=== PATIENT | female | born 1975 | race Hispanic/Latino ===

== ENCOUNTER 2019-05-15 19:20 | Emergency (ER) | payer BC ==
[~2019-05-15] VITALS: Ht 160 cm; Wt 70.8 kg
[~2019-05-15 19:20] MED LIST: ADVAIR 250-501 EACH INH; BENTYL20 MG PO; NKM; PENTASA500 MG PO
[2019-05-15] MEDS ORDERED: SODIUM CHLORIDE 0.9% 1000ML 1,000 ML IV STA (19:54)
[2019-05-15] MEDS ORDERED: FAMOTIDINE 20 MG/2 ML VIAL IV ONE (20:00)
[2019-05-15] MEDS ORDERED: ONDANSETRON HCL INJ 2MG/ML 2ML 2 MG/ML VIAL IV ONE (20:00)
[2019-05-15] MEDS ORDERED: KETOROLAC TROMETHAMINE 30 MG/ML VIAL IV ONE (20:00)
[2019-05-15] MEDS ORDERED: SODIUM CHLORIDE 0.9% 1000ML 1,000 ML ONE (20:11)
[2019-05-15] MEDS ORDERED: SODIUM CHLORIDE 0.9% 50ML 50 ML ONE (20:19)
[2019-05-15] MEDS ORDERED: IOPAMIDOL 370 MG/ML 200 ML INFUS..BTL INJ ONE (20:19)
--- NOTE | 2019-05-15 21:20 | Diagnostic Imaging Report ---
EXAMINATION: CT of the abdomen and pelvis with contrast. TECHNIQUE: Spiral CT images of the abdomen and pelvis were performed from the lung bases to the lesser trochanters after the intravenous administration of 100 cc of Isovue 370. Coronal and sagittal reformatted images were obtained. COMPARISON: None. CLINICAL HISTORY:Right upper quadrant pain DISCUSSION: ABDOMEN/PELVIS: LOWER THORAX:Lung bases are unremarkable. No pleural effusion. HEPATOBILIARY: Hepatic parenchyma is diffusely hypoattenuating compatible with steatosis. There is a 1.8 cm hypoattenuating lesion in segment 4A with questionable nodular peripheral enhancement as seen on series 2 image 26. No additional focal hepatic lesion or intrahepatic biliary ductal dilatation. The gallbladder is absent. SPLEEN: No splenomegaly or focal splenic lesion. PANCREAS: No focal masses or ductal dilatation. ADRENALS: No adrenal nodules. KIDNEYS/URETERS: No hydronephrosis, calculi, or solid or cystic mass lesions. PELVIC ORGANS/BLADDER: Urinary bladder is incompletely distended and poorly evaluated. Multiple pelvic phleboliths. Uterus is anteflexed and appears normal. No adnexal mass. PERITONEUM/RETROPERITONEUM: No ascites or pneumoperitoneum. LYMPH NODES: No pelvic sidewall, retroperitoneal, or mesenteric lymphadenopathy. VESSELS: Abdominal aorta, major branch vessels, and iliac arterial systems are patent. Portal vein, splenic vein, and central superior mesenteric vein are patent. Dilated left ovarian vein with engorged left pelvic venous complex. Right hepatic artery is replaced to the superior mesenteric artery. GI TRACT: There are a few diverticula along the descending colon without wall thickening or adjacent inflammatory change. The appendix is normal. No small bowel dilatation to suggest obstruction. BONES AND SOFT TISSUE: No osseous destructive lesions. 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 Asymmetric fibroglandular breast tissue in the inferomedial quadrant of the right breast (series 2 image 14). IMPRESSION: No acute intra-abdominal or pelvic CT abnormalities. Hepatic steatosis. 1.8 cm lesion in hepatic segment 4A is incompletely characterized on this single phase examination, though is favored to represent a benign lesion such as hemangioma. Definitive characterization with nonemergent MRI of the abdomen with and without contrast (liver mass protocol) is suggested. Asymmetric fibroglandular breast tissue in the lower inner quadrant of the right breast should be correlated with mammography. Dilated left ovarian and pelvic venous complex may suggest pelvic congestion syndrome in the appropriate clinical setting. Mild large bowel diverticulosis without findings of diverticulitis. Signed by: Dr. Heber Ding M.D. on 05/15/2019 9:17 PM
--- NOTE | 2019-05-15 22:00 | NUR ---
DC'D SL WITHOUT DIFF. PT TOLERATED WELL. NO BLEEDING/SWELLING/REDNESS/HEMATOMA TO SITE NOTED. IV CATH INTACT.
[2019-05-16 01:30] VITALS: BP 139/82
== END 2019-05-15 22:05 | disposition home or self-care (01) ==
LOC: FSED 19:20
DX: R10.11 Right upper quadrant pain (principal); R11.0 Nausea; K57.90 Diverticulosis of intestine, part unspecified, without perforation or abscess without bleeding
CPT/HCPCS: 74177; 80048; 80053; 80076; 81003; 81025; 85025; 85379; 99284; J1885; J2405; J7030; Q9967

== ENCOUNTER → 2019-05-27 | Day surgery (SDC) | payer BC ==
[~2019-05-27] MED LIST changes: +PROPOFOL IV EMULSION 10 MG/ML 50 ML VIAL ONE; +ZYRTEC10 M3 PO
--- OUTSIDE RECORDS SUMMARY | 2019-05-27 06:58 | XMS REPORT ---
Author [facility] Address Unknown Phone Unavailable Care Team Providers Care Community Liaison Officer Name Role Phone Dante WORKMAN Unavailable Unavailable Problems This patient has no known problems. Allergies, Adverse Reactions, Alerts This patient has no known allergies or adverse reactions. Medications This patient has no known medications. Results Test Description Test Time Test Comments Text Results Atomic Results Result Comments CT ABD/PEL WITH CONTRAST-HOPD 2019-05-15 21:07:00 [place] [address] Patient Name: DUKE ESQUEDA MR #: [id number] : 1975 Age/Sex: 43/F Req #: [id number] Adm Physician: Ordered by: JOSEPH WORKMAN MD Report #: [id number] Location: [facility] Room/Bed: Procedure: [id number] HOPD/CT ABD/PEL WITH CONTRAST-HOPD Exam Date: Exam Time: REPORT STATUS: Signed EXAMINATION: CT of the abdomen and pelvis with contrast . TECHNIQUE: Spiral CT images of the abdomen and pelvis were performed from the lung bases to the lesser trochanters after the intravenous administration of 100 cc of Isovue 370. Coronal and sagittal reformatted images were obtained. COMPARISON: None. CLINICAL HISTORY:Right upper quadrant pain DISCUSSION: ABDOMEN/PELVIS: LOWER THORAX:Lung bases are unremarkable. No pleural effusion. HEPATOBILIARY: Hepatic parenchyma is diffusely hypoattenuating compatible with steatosis. There is a 1.8 cm hypoattenuating lesion in segment 4A with questionable nodular peripheral enhancement as seen on series 2 image 26. No additional focal hepatic lesion or intrahepatic biliary ductal dilatation. The gallbladder is absent. SPLEEN: No splenomegaly or focal splenic lesion. PANCREAS: No focal masses or ductal dilatation. ADRENALS: No adrenal nodules. KIDNEYS/URETERS: No hydronephrosis, calculi, or solid or cystic mass lesions. PELVIC ORGANS/BLADDER: Urinary bladder is incompletely distended and poorly evaluated. Multiple pelvic phleboliths. Uterus is anteflexed and appears normal. No adnexal mass. PERITONEUM/RETROPERIT ONEUM: No ascites or pneumoperitoneum. LYMPH NODES: No pelvic sidewall, retroperitoneal, or mesenteric lymphadenopathy. VESSELS: Abdominal aorta, major branch vessels, and iliac arterial systems are patent. Portal vein, splenic vein, and central superior mesenteric vein are patent. Dilated left ovarian vein with engorged left pelvic venous complex. Right hepatic artery is replaced to the superior mesenteric artery. GI TRACT: There are a few diverticula along the descending colon without wall thickening or adjacent inflammatory change. The appendix is normal. No small bowel dilatation to suggest obstruction. BONES AND SOFT TISSUE: No osseous destructive lesions. 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 Asymmetric fibroglandular breast tissue in the inferomedial quadrant of the right breast (series 2 image 14). IMPRESSION: No acute intra- abdominal or pelvic CT abnormalities. Hepatic steatosis. 1.8 cm lesion in hepatic segment 4A is incompletely characterized on this single phase examination, though is favored to represent a benign lesion such as hemangioma. Definitive characterization with nonemergent MRI of the abdomen with and without contrast (liver mass protocol) is suggested. Asymmetric fibroglandular breast tissue in the lower inner quadrant of the right breast should be correlated with mammography. Dilated left ovarian and pelvic venous complex may suggest pelvic congestion syndrome in the appropriate clinical setting. Mild large bowel diverticulosis without findings of diverticulitis. Signed by: Dr. Sheila Naik M.D. on 05/15/2019 9:17 PM Dictated By: SHEILA NAIK MD 16 Transcribed By: ОЛЬГА on 05/15/192116 COPY TO: JOSEPH WORKMAN MD
[2019-05-27 11:15] VITALS: BP 121/84
--- NOTE | 2019-05-27 11:57 | Operative Report ---
DATE OF PROCEDURE: 05/27/2019 SURGEON: Julio Millan MD PROCEDURE: EGD with biopsies. INDICATIONS FOR EGD: Upper abdominal pain, bloating. MEDICATIONS: The patient was done under MAC, please see anesthesiologist's note. PROCEDURE IN DETAIL: With the patient in the left lateral decubitus position, a flexible fiberoptic Olympus gastroscope was introduced into the esophagus under direct visualization without any difficulty. The esophagus appeared to be within normal limits. The scope was then advanced with ease into the stomach. Mucosa overlying the antrum and the body revealed some patchy intense erythema and low-grade to moderate edema, and biopsies were obtained and sent to stain for H. pylori. The pyloric channel was somewhat stenotic, but it opened up nicely with recurrent intubation with the scope. The scope was then advanced all the way to the second portion of the duodenum. Biopsies were obtained from the proximal second portion and duodenal bulb to rule out sprue. The scope was then withdrawn back into the stomach and retroflexed, mucosa overlying the fundus and the cardia appeared to be within normal limits. The scope was then straightened out, it was subsequently withdrawn, and the patient tolerated the procedure well. IMPRESSION: 1. Normal esophagus. 2. Gastritis, biopsied, biopsies sent to stain for Helicobacter pylori. 3. Rule out sprue. PLAN: Follow up histology. Initiate Protonix 40 mg 1 p.o. q.a.m. before meals. Julio Millan MD [facility] [place] /[id number] cc: Graham Stevens MD
== END | disposition home or self-care (01) ==
LOC: OR 06:20
PROVIDERS: ATTEND Internal Medicine Gastroenterology
DX: K29.70 Gastritis, unspecified, without bleeding (principal); K63.5 Polyp of colon; Z88.1 Allergy status to other antibiotic agents
CPT/HCPCS: 43239; 81025; J2704

== ENCOUNTER → 2019-06-23 | Day surgery (SDC) | payer BC ==
[~2019-06-23] MED LIST changes: +FENTANYL CITRATE/PF 100MCG/2 ML INJ ONE; +HYOSCYAMINE 0.125 MG TAB ONE; +LIDOCAINE HCL 2% LOCAL INJ 5 ML SDV VIAL INJ ONE; +MIDAZOLAM HCL 2 MG/2 ML VIAL ONE; +PROTONIX40 MG PO
[2019-06-23 10:30] VITALS: BP 134/91
[2019-06-23 10:41] LABS: WBC,FECAL (FECAL LACTOFERRIN) POSITIVE (NEGATIVE)
--- NOTE | 2019-06-23 11:11 | Operative Report ---
DATE OF PROCEDURE: 06/23/2019 SURGEON: Julio Millan MD PROCEDURE: EGD with polypectomy and biopsies. INDICATION FOR EGD: Left-sided abdominal pain, intermittent diarrhea. MEDICATIONS: The patient was done under MAC. Please see anesthesiologist's note. PROCEDURE IN DETAIL: With the patient in left lateral decubitus position, flexible fiberoptic Olympus colonoscope was inserted into the rectum with ease and advanced all the way to the cecum. Mucosa overlying the cecum appeared to be within normal limits. The ileocecal valve was intubated and the scope was advanced into the terminal ileum. An approximately 2 mm ulcer was noted in the terminal ileum and that was biopsied. The scope was then withdrawn back into the colon. Some scattered diverticular disease was noted in the ascending colon. Also, some mild patchy inflammatory changes were noted in the ascending colon. Biopsies were obtained. The transverse grossly appeared to be within normal limits. Mild patchy inflammatory changes were noted in the descending, sigmoid, and rectum. Random biopsies were obtained. Also, there was some scattered diverticular disease noted in the left colon. An approximately 5 mm polyp was removed in the sigmoid colon by snare electrocautery. The scope was then retroflexed into the distal rectum and small internal hemorrhoids were noted, none of which was actively bleeding. The scope was then straightened out; it was subsequently withdrawn after securing an adequate stool specimen that was sent for the appropriate stool studies. The patient tolerated procedure well. IMPRESSION: 1. Ulcer, terminal ileum, biopsied. 2. Diverticulosis, scattered. 3. Mild patchy colitis ascending colon and left colon random biopsies obtained. 4. Sigmoid colon polyp approximately 5 mm in size, removed per snare electrocautery. 5. Proctitis, mild. 6. Internal hemorrhoids, none actively bleeding. PLAN: Follow up histology. Follow up stool studies. Check IBD panel, CRP and sedimentation rate. Start VSL #3 one p.o. b.i.d. and Bentyl 10 mg one p.o. t.i.d. Pending stool studies and pathology report. The patient might benefit from a followup colonoscopy in 5 years. Julio Millan MD [facility] [place][id number] cc: UNKNOWN DOCTOR
[2019-06-23 15:22] LABS: C DIFFICILE TOXIN A&B AMP PROB **POSITIVE** (NEGATIVE)
== END | disposition home or self-care (01) ==
LOC: OR 07:10
PROVIDERS: ATTEND Internal Medicine Gastroenterology
DX: K52.9 Noninfective gastroenteritis and colitis, unspecified (principal); D12.5 Benign neoplasm of sigmoid colon; K63.3 Ulcer of intestine; K57.30 Diverticulosis of large intestine without perforation or abscess without bleeding; K62.89 Other specified diseases of anus and rectum; K64.8 Other hemorrhoids; Z88.1 Allergy status to other antibiotic agents
CPT/HCPCS: 36415; 45378; 45380; 81025; 83630; 83993; 85651; 86140; 86256; 86671; 87045; 87177; 87328; 87493; J2001; J2250; J3010

== ENCOUNTER → 2019-09-21 | Outpatient (CLI) | payer BC, OTHER ==
[~2019-09-21] MED LIST changes: -FENTANYL CITRATE/PF 100MCG/2 ML INJ ONE; -HYOSCYAMINE 0.125 MG TAB ONE; -LIDOCAINE HCL 2% LOCAL INJ 5 ML SDV VIAL INJ ONE; -MIDAZOLAM HCL 2 MG/2 ML VIAL ONE; -PROPOFOL IV EMULSION 10 MG/ML 50 ML VIAL ONE
--- NOTE | 2019-09-21 11:14 | Diagnostic Imaging Report ---
FLUOROSCOPIC SMALL BOWEL SERIES ADULT BASIC EDUCATION TEACHER(S): Kosta Guevara MD Indication: Abdominal pain Comparison: None. Radiation Dose: Total dose: 10.7 mGy Total fluoroscopy time: 0.8 minutes Procedure: Small bowel follow through exam was performed using oral barium. Preliminary image was obtained before administration of contrast and serial overhead images were obtained after administration of oral barium. Fluoroscopy was performed and spot images were obtained. DISCUSSION: CROSSING GATEMAN: The bowel gas pattern is non-obstructive. No acute bony abnormality. Status post cholecystectomy. Phleboliths in the left pelvis. STOMACH: Unremarkable mucosal pattern. SMALL BOWEL: Bulb and sweep are normal. Duodenal-jejunal junction is in the normal expected position. Small bowel loops are normal in caliber and distribution. There is no evidence of fistula, mucosal changes, stricture or dilation. The transit time was within normal limits. COLON: Partially visualized proximal colon is unremarkable. Spot images demonstrate normal appearance of the terminal ileum. Opacification of the normal nondilated appendix. IMPRESSION: Unremarkable fluoroscopic small bowel series. Signed by: Kosta Guevara MD on 09/21/2019 11:11 AM
== END ==
LOC: DX 08:33
PROVIDERS: ATTEND Internal Medicine Gastroenterology
DX: R10.9 Unspecified abdominal pain (principal); Z11.59 Encounter for screening for other viral diseases
CPT/HCPCS: 74250; 87635

== ENCOUNTER 2020-05-24 09:02 | Observation (INO) | payer BC ==
[~2020-05-24] VITALS: Ht 154.9 cm; Wt 70.8 kg
[2020-05-24] MEDS ORDERED: FAMOTIDINE 20 MG/2 ML VIAL IV STA ×2 (09:10→11:41)
[2020-05-24] MEDS ORDERED: ONDANSETRON HCL INJ 2MG/ML 2ML 2 MG/ML VIAL IV STA (09:10)
[2020-05-24 09:22] LABS: BASOPHILS # (AUTO) 0.1 (0.0-0.1); BASOPHILS % 0.4 % (0.0-1.0); EOSINOPHILS % 0.2 % (0.0-6.0); HEMATOCRIT 47.7 % (34.2-44.1); HEMOGLOBIN 15.9 g/dL (12.0-16.0); LYMPHOCYTES # (AUTO) 1.2 (1.0-3.2); LYMPHOCYTES % 6.6 % (18.0-39.1); MEAN CORPUSCULAR HEMOGLOBIN 28.9 pg (28-32); MEAN CORPUSCULAR HGB CONC 33.3 g/dL (31-35); MEAN CORPUSCULAR VOLUME 86.6 fL (81-99); MONOCYTES # (AUTO) 0.8 (0.2-0.8); MONOCYTES % 4.5 % (4.4-11.3); NEUTROPHILS % 87.6 % (38.7-80.0); PLATELET COUNT 389 x10e3/uL (140-360); RED BLOOD COUNT 5.51 x10e6/uL (3.6-5.1)
[2020-05-24 09:42] LABS: INR 0.98; PROTHROMBIN TIME 13.6 seconds (11.9-14.5)
[2020-05-24 09:50] LABS: ALANINE AMINOTRANSFERASE 29 IU/L (0-55); ALBUMIN 4.4 g/dL (3.5-5.0); ALBUMIN/GLOBULIN RATIO 0.8 (0.8-2.0); ALKALINE PHOSPHATASE 82 IU/L (40-150); ANION GAP 17.1 mmol/L (8-16); BLOOD UREA NITROGEN 14 mg/dL (7-26); BUN/CREATININE RATIO 15 (6-25); CALCIUM 9.9 mg/dL (8.4-10.2); CARBON DIOXIDE 22 mmol/L (22-29); CHLORIDE 103 mmol/L (98-107); CREATININE, SERUM 0.91 mg/dL (0.57-1.11); EST GLOMERULAR FILTRATION RATE > 60 ML/MIN (60-); GLUCOSE 102 mg/dL (74-118); POTASSIUM 4.1 mmol/L (3.5-5.1); SODIUM 138 mmol/L (136-145)
[2020-05-24 09:54] LABS: LIPASE 57 U/L (8-78)
[2020-05-24] MEDS: SODIUM CHLORIDE 0.9% 1000ML 1,000 ML IV SCH ×2 (11:19→19:00)
[2020-05-24] MEDS: ONDANSETRON HCL INJ 2MG/ML 2ML 2 MG/ML VIAL IV PRN ×2 (11:20→16:24)
[2020-05-24] MEDS: MORPHINE SULFATE INJ 4 MG/ML INJ 1ML IV PRN ×2 (11:20→16:24)
[2020-05-24] MEDS ORDERED: MIDAZOLAM HCL 2 MG/2 ML VIAL ONE (11:54)
[2020-05-24] MEDS: PIPERACILLIN/TAZOBAC 3.375 GM in SODIUM CHLORIDE 0.9% 50ML 50 ML IV SCH ×3 (11:55→23:06)
[2020-05-24] MEDS ORDERED: LIDOCAINE HCL 2% LOCAL INJ 5 ML SDV VIAL INJ ONE (13:52)
[2020-05-24] MEDS ORDERED: PROPOFOL IV EMULSION 10 MG/ML 20 ML VIAL ONE (13:52)
[2020-05-24 14:21] VITALS: BP 147/87
[2020-05-24 14:27] VITALS: BP 147/87
[2020-05-24] MEDS: PANTOPRAZOLE 40 MG 10ML VIAL IV SCH ×2 (16:00→21:00)
[2020-05-24] MEDS ORDERED: METOCLOPRAMIDE HCL 10 MG/2ML VIAL IV ONE (16:15)
[2020-05-24] MEDS ORDERED: PIPERACILLIN/TAZOBAC 3.375 GM VIAL ONE ×2 (16:19→22:34)
[2020-05-24 21:00] VITALS: BP 110/73
[2020-05-24 21:50] VITALS: BP 110/72
[2020-05-24] MEDS ORDERED: SODIUM CHLORIDE 0.9% 50ML 50 ML ONE (22:35)
[2020-05-24] MEDS: METOCLOPRAMIDE HCL 10 MG/2ML VIAL IV SCH (23:06)
[2020-05-25 00:28] VITALS: BP 94/52
[2020-05-25 04:00] VITALS: BP 102/64
[2020-05-25] MEDS ORDERED: PIPERACILLIN/TAZOBAC 3.375 GM VIAL ONE ×2 (04:06→11:40)
[2020-05-25] MEDS ORDERED: SODIUM CHLORIDE 0.9% 50ML 50 ML ONE (04:07)
[2020-05-25] MEDS: METOCLOPRAMIDE HCL 10 MG/2ML VIAL IV SCH ×2 (05:09→12:00)
[2020-05-25] MEDS: SODIUM CHLORIDE 0.9% 1000ML 1,000 ML IV SCH ×2 (05:09→11:00)
[2020-05-25] MEDS: PIPERACILLIN/TAZOBAC 3.375 GM in SODIUM CHLORIDE 0.9% 50ML 50 ML IV SCH ×2 (05:09→12:00)
[2020-05-25 05:32] LABS: BASOPHILS % 0.4 % (0.0-1.0); EOSINOPHILS # (AUTO) 0.2 (0.0-0.4); EOSINOPHILS % 1.9 % (0.0-6.0); HEMATOCRIT 37.1 % (34.2-44.1); HEMOGLOBIN 12.2 g/dL (12.0-16.0); LYMPHOCYTES # (AUTO) 2.2 (1.0-3.2); LYMPHOCYTES % 23.9 % (18.0-39.1); MEAN CORPUSCULAR HEMOGLOBIN 28.9 pg (28-32); MEAN CORPUSCULAR HGB CONC 32.9 g/dL (31-35); MEAN CORPUSCULAR VOLUME 87.9 fL (81-99); MONOCYTES # (AUTO) 0.7 (0.2-0.8); MONOCYTES % 7.4 % (4.4-11.3); NEUTROPHILS # (AUTO) 5.9 (2.1-6.9); PLATELET COUNT 283 x10e3/uL (140-360); RED BLOOD COUNT 4.22 x10e6/uL (3.6-5.1)
[2020-05-25 05:55] LABS: ALANINE AMINOTRANSFERASE 52 IU/L (0-55); ALBUMIN/GLOBULIN RATIO 0.9 (0.8-2.0); ALKALINE PHOSPHATASE 61 IU/L (40-150); ANION GAP 11.9 mmol/L (8-16); BLOOD UREA NITROGEN 10 mg/dL (7-26); BUN/CREATININE RATIO 13 (6-25); CALCIUM 8.1 mg/dL (8.4-10.2); CARBON DIOXIDE 22 mmol/L (22-29); CHLORIDE 110 mmol/L (98-107); CREATININE, SERUM 0.77 mg/dL (0.57-1.11); EST GLOMERULAR FILTRATION RATE > 60 ML/MIN (60-); GLUCOSE 80 mg/dL (74-118); POTASSIUM 3.9 mmol/L (3.5-5.1); SODIUM 140 mmol/L (136-145)
[2020-05-25 07:40] VITALS: BP 102/64
[2020-05-25 08:00] VITALS: BP 101/64
[2020-05-25] MEDS: PANTOPRAZOLE 40 MG 10ML VIAL IV SCH (08:50)
[2020-05-25 12:00] VITALS: BP 112/81
[2020-05-25 16:04] VITALS: BP 101/61
== END 2020-05-25 17:15 | disposition home or self-care (01) ==
LOC: ER 09:05 → ERHOLD 12:09 → MED/SURG2 13:43
PROVIDERS: ADMIT Internal Medicine; ATTEND Internal Medicine
DX: K31.1 Adult hypertrophic pyloric stenosis (principal); K29.70 Gastritis, unspecified, without bleeding; Z20.822 Contact with and (suspected) exposure to COVID-19; K20.90 Esophagitis, unspecified without bleeding; K44.9 Diaphragmatic hernia without obstruction or gangrene
CPT/HCPCS: 36415 ×2; 43239; 43249; 71045; 80053 ×2; 80320; 83690; 84702; 85025 ×2; 85610; 86850; 86900; 88305; 88312; 93005; 99284; C1726; C9113 ×2; G0378 ×2; J2001; J2250; J2270; J2405; J2543 ×2; J2704; J2765 ×2; J7030 ×2; U0002

== ENCOUNTER → 2021-01-14 | Outpatient (CLI) | payer BC | LOC: MRI 07:30 | PROVIDERS: ATTEND Specialist | DX: M65.872 Other synovitis and tenosynovitis, left ankle and foot (principal); M25.572 Pain in left ankle and joints of left foot ==

== ENCOUNTER 2022-04-29 12:37 | Emergency (ER) | payer BC, OTHER ==
[~2022-04-29] VITALS: Ht 160 cm; Wt 69.4 kg
[2022-04-29] MEDS ORDERED: MECLIZINE HCL 12.5 MG TAB PO ONE (13:30)
[2022-04-29] MEDS ORDERED: SODIUM CHLORIDE 0.9% 1000ML 1,000 ML IV ONE (13:30)
[2022-04-29] MEDS ORDERED: MECLIZINE HCL 12.5 MG TAB ONE (14:04)
[2022-04-29] MEDS ORDERED: SODIUM CHLORIDE 0.9% 1000ML 1,000 ML ONE (14:04)
[2022-04-29] MEDS ORDERED: MECLIZINE HCL12.5 MG PO (15:14)
[2022-04-29] MEDS ORDERED: ONDANSETRON ODT4 MG PO (15:14)
== END 2022-04-29 15:32 | disposition home or self-care (01) ==
LOC: FSED 13:13
DX: H55.00 Unspecified nystagmus (principal); R42 Dizziness and giddiness; Z87.19 Personal history of other diseases of the digestive system
CPT/HCPCS: 70450; 80053; 81003; 85025; 96374; 99284; J7030; J8597